=== PATIENT | female | born 1985 | race Caucasian/White ===

== ENCOUNTER 2020-03-18 16:18 | Emergency (ER) | payer OTHER ==
[~2020-03-18 16:18] MED LIST: IBUPROFEN600 MG PO; PERCOCET 5/325 T1 EA PO
== END 2020-03-18 17:58 | disposition home or self-care (01) ==
LOC: ER1 16:18
DX: K64.8 Other hemorrhoids (principal); F17.200 Nicotine dependence, unspecified, uncomplicated; Z88.7 Allergy status to serum and vaccine
CPT/HCPCS: 99283

== ENCOUNTER → 2020-06-26 | Outpatient (CLI) | payer OTHER ==
[~2020-06-26] MED LIST changes: +CYCLOBENZAPRINE10 MG PO; +OMNICEF 300 MG300 MG PO
[2020-06-26 12:02] LABS: HEMOGLOBIN 15.4 gm/dl (12.3-15.3); RED BLOOD COUNT 4.95 M/UL (4.00-5.10); WHITE BLOOD COUNT 9.7 K/UL (4.5-11.0)
[2020-06-26 12:45] LABS: BUN/CREATININE RATIO 20 (0-10)
[2020-06-27 11:15] LABS: HBSAG SCREEN Negative (Negative); HCV AB <0.1 (0.0-0.9); HEP B CORE AB, TOT Negative (Negative)
== END ==
LOC: LAB 10:39
PROVIDERS: Internal Medicine
DX: Z11.59 Encounter for screening for other viral diseases (principal); D89.89 Other specified disorders involving the immune mechanism, not elsewhere classified; M25.50 Pain in unspecified joint; R76.0 Raised antibody titer; R70.0 Elevated erythrocyte sedimentation rate; E79.0 Hyperuricemia without signs of inflammatory arthritis and tophaceous disease; E55.9 Vitamin D deficiency, unspecified
CPT/HCPCS: 36415; 80053; 82728; 83520; 83615; 85025; 85652; 86140; 86704; 86803; 87340

== ENCOUNTER 2020-08-10 23:02 | Emergency (ER) | payer OTHER ==
[~2020-08-10 23:02] MED LIST changes: -CYCLOBENZAPRINE10 MG PO; -OMNICEF 300 MG300 MG PO
[2020-08-11 00:54] LABS: HEMOGLOBIN 16.2 gm/dl (12.3-15.3); RED BLOOD COUNT 5.13 M/UL (4.00-5.10); WHITE BLOOD COUNT 11.9 K/UL (4.5-11.0)
[2020-08-11 01:12] LABS: BUN/CREATININE RATIO 15 (0-10)
[2020-08-11] MEDS ORDERED: OMNICEF 300 MG300 MG PO (01:45)
[2020-08-11] MEDS ORDERED: CYCLOBENZAPRINE10 MG PO (01:45)
== END 2020-08-11 01:55 | disposition home or self-care (01) ==
LOC: ER1 23:02
PROVIDERS: Physician Assistant
DX: N12 Tubulo-interstitial nephritis, not specified as acute or chronic (principal); F17.200 Nicotine dependence, unspecified, uncomplicated; Z90.49 Acquired absence of other specified parts of digestive tract; Z90.710 Acquired absence of both cervix and uterus; Z88.8 Allergy status to other drugs, medicaments and biological substances
CPT/HCPCS: 71046; 72072; 80053; 81001; 85025; 87077; 87086; 87186; 99283; J0696; J1885

== ENCOUNTER 2020-11-19 20:16 | Emergency (ER) | payer OTHER ==
[~2020-11-19 20:16] MED LIST changes: +CYCLOBENZAPRINE10 MG PO; +OMNICEF 300 MG300 MG PO
[2020-11-19 22:17] LABS: HEMOGLOBIN 15.1 gm/dl (12.3-15.3); RED BLOOD COUNT 4.89 M/UL (4.00-5.10); WHITE BLOOD COUNT 9.3 K/UL (4.5-11.0)
[2020-11-19 22:39] LABS: BUN/CREATININE RATIO 15 (0-10)
== END 2020-11-20 01:59 | disposition home or self-care (01) ==
LOC: ER1 20:16
DX: R07.89 Other chest pain (principal); R05 Cough; M54.9 Dorsalgia, unspecified; Z90.710 Acquired absence of both cervix and uterus; F17.200 Nicotine dependence, unspecified, uncomplicated; M19.90 Unspecified osteoarthritis, unspecified site; Z20.822 Contact with and (suspected) exposure to COVID-19
CPT/HCPCS: 71045; 80053; 82550; 82553; 83874; 84484; 85025; 93005; 99285; U0002

== ENCOUNTER → 2020-12-25 | Outpatient (CLI) | payer OTHER | LOC: HEART 5 10:45 | DX: R07.9 Chest pain, unspecified (principal) ==

== ENCOUNTER → 2021-03-15 | Outpatient (CLI) | payer OTHER | LOC: KOH-I 11:09 | DX: M25.512 Pain in left shoulder (principal) | CPT/HCPCS: 73030 ==

== ENCOUNTER 2021-04-23 07:40 | Emergency (ER) | payer OTHER | END 2021-04-23 09:00 | disposition left against medical advice (07) | LOC: ER1 07:40 | DX: R51.9 Headache, unspecified (principal); Z90.710 Acquired absence of both cervix and uterus; F17.200 Nicotine dependence, unspecified, uncomplicated | CPT/HCPCS: 96374; 96375; 99282; J1885; J2765; J7030 ==

== ENCOUNTER 2021-05-03 13:20 | Emergency (ER) | payer OTHER ==
[2021-05-03 14:06] LABS: HEMOGLOBIN 14.1 gm/dl (12.3-15.3); RED BLOOD COUNT 4.37 M/UL (4.00-5.10); WHITE BLOOD COUNT 12.3 K/UL (4.5-11.0)
[2021-05-03 14:26] LABS: BUN/CREATININE RATIO 20 (0-10)
[2021-05-03] MEDS ORDERED: AMOX TR-K CLV1 EAC4 PO (15:17)
== END 2021-05-03 15:48 | disposition home or self-care (01) ==
LOC: ER1 13:20
DX: K57.92 Diverticulitis of intestine, part unspecified, without perforation or abscess without bleeding (principal); F17.200 Nicotine dependence, unspecified, uncomplicated; Z90.710 Acquired absence of both cervix and uterus; Z90.49 Acquired absence of other specified parts of digestive tract
CPT/HCPCS: 80053; 81001; 83690; 85025; 96374; 99284; J1885; Q9967

== ENCOUNTER → 2021-10-23 | Outpatient (CLI) | payer OTHER ==
[~2021-10-23] MED LIST changes: +AMOX TR-K CLV1 EAC4 PO
== END ==
LOC: EMI 08:15
DX: G44.89 Other headache syndrome (principal); G43.109 Migraine with aura, not intractable, without status migrainosus
CPT/HCPCS: 70551

== ENCOUNTER → 2021-11-16 | Outpatient (CLI) | payer OTHER | LOC: EXRD 08:07 | DX: M79.89 Other specified soft tissue disorders (principal); K76.0 Fatty (change of) liver, not elsewhere classified | CPT/HCPCS: 76705 ==

== ENCOUNTER → 2021-11-20 | Outpatient (CLI) | payer OTHER | LOC: EXRD 15:40 | DX: M79.89 Other specified soft tissue disorders (principal) | CPT/HCPCS: 93971 ==

== ENCOUNTER 2021-11-27 09:09 | Emergency (ER) | payer OTHER ==
[2021-11-27 10:11] LABS: HEMOGLOBIN 15.1 gm/dl (12.3-15.3); RED BLOOD COUNT 4.81 M/UL (4.00-5.10); WHITE BLOOD COUNT 10.5 K/UL (4.5-11.0)
[2021-11-27 10:39] LABS: BUN/CREATININE RATIO 22 (0-10)
== END 2021-11-27 12:55 | disposition home or self-care (01) ==
LOC: ER1 09:09
PROVIDERS: Physician Assistant
DX: R60.0 Localized edema (principal); R06.02 Shortness of breath; J45.909 Unspecified asthma, uncomplicated; F17.210 Nicotine dependence, cigarettes, uncomplicated; Z88.7 Allergy status to serum and vaccine
CPT/HCPCS: 71046; 73630; 80053; 82550; 82553; 84484; 85025; 85379; 93005; 99285; Q9967

== ENCOUNTER → 2021-12-05 | Outpatient (CLI) | payer OTHER | LOC: ECHO 12:53 | DX: M79.89 Other specified soft tissue disorders (principal); I51.7 Cardiomegaly | CPT/HCPCS: 93306 ==

== ENCOUNTER → 2021-12-06 | Outpatient (CLI) | payer OTHER | LOC: US 13:30 → CT 14:00 → US 14:31 | DX: K76.9 Liver disease, unspecified (principal); R60.0 Localized edema | CPT/HCPCS: 74170; Q9967 ==